=== PATIENT | female | born 1955 | race Caucasian/White ===

== ENCOUNTER → 2017-12-03 10:17 | Outpatient (CLI) | payer OTHER, MEDICAID, SELFPAY ==
--- NOTE | 2017-12-03 10:19 | DI.US.S_ITS ---
PROCEDURE: US ABDOMEN COMPLETE INDICATIONS: RUQ pain TECHNIQUE: Real-time scanning was performed of the abdominal and retroperitoneal organs, with image documentation. COMPARISON: None. FINDINGS: Liver: Liver is normal in size and homogeneous in echotexture. Gallbladder: The gallbladder is normal Biliary ducts: Intrahepatic bile ducts are non-dilated. Extrahepatic bile duct caliber measures 6.0 mm. Normal is 6-7 mm or less in diameter, or 10 mm or less post-cholecystectomy. Pancreas: Visualized portions of the pancreas are sonographically normal. Spleen: Spleen is normal in size and homogeneous in echotexture. Kidneys: Kidneys are normal in size and echotexture. Right kidney measures 11.6 cm long; left kidney measures 11.5 cm long. No hydronephrosis or nephrolithiasis. No solid masses. Aorta: Visualized aorta is normal in caliber at less than 3 cm. Iliacs: Proximal common iliac arteries are normal in caliber at less than 2.5 cm. IVC: Intrahepatic inferior vena cava is patent. Miscellaneous: No free abdominal fluid. IMPRESSION: Normal examination, source of current pain is not identified. Dictated by: Blas Perez M.D. on 12/03/2017 at 11:06 Approved by: Blas Perez M.D. on 12/03/2017 at 11:15
[2017-12-03 11:38] LABS: Add Manual Diff / Slide Review NO; Basophils Percent Auto 0.3 % (0-2); Eosinophils Percent Auto 1.4 % (2-4); Hematocrit 42.1 % (36-46); Hemoglobin 14.2 g/dL (12.0-16.0); Lymphocytes Percent Auto 37.4 % (25-40); Mean Corpuscular HGB Conc 33.8 % (30-36); Mean Corpuscular Hemoglobin 30.5 PG (26-34); Mean Corpuscular Volume 90.3 fL (80-100); Neutrophils Absolute Auto 3700 /uL (3000-5900); Neutrophils Percent Auto 54.9 % (50-75); Platelet Count 255 X10^3/uL (150-400); Red Blood Cell Count 4.66 X10^6/uL (4.0-5.2); Red Cell Distribution Width 13.1 % (11.6-14.8); White Blood Cell Count 6.7 X10^3/uL (4.5-11.0)
[2017-12-03 12:41] LABS: Alanine Aminotransferase 34 IU/L (9-52); Albumin 4.4 g/dL (3.5-5.0); Albumin Globulin Ratio 1.6 (1.0-2.8); Alkaline Phosphatase 51 U/L (38-126); Amylase 88 U/L (30-110); Aspartate Aminotransferase 25 IU/L (14-36); BUN Creatinine Ratio 22.9 (6-22); Blood Urea Nitrogen 16 mg/dL (7-17); Calcium 9.6 mg/dL (8.4-10.2); Carbon Dioxide 30 mmol/L (22-32); Chloride 105 mmol/L (98-107); Estimated Glomerular Filt Rate > 60.0 mL/min (>60); Globulin 2.7 g/dL (1.7-4.1); Glucose 100 mg/dL (80-110); HEMOLYSIS < 15 (0-50); Lipase 139 U/L (23-300); Potassium 4.1 mmol/L (3.4-5.1); Sodium 144 mmol/L (137-145); Total Protein 7.1 g/dL (6.3-8.2)
[2017-12-03 13:13] LABS: Thyroid Stimulating Hormone 1.31 uIU/mL (0.47-4.68)
== END ==
PROVIDERS: PCP Family Medicine; Visit Provider Internal Medicine
DX: R10.11 Right upper quadrant pain (principal); R63.5 Abnormal weight gain
CPT/HCPCS: 36415; 76700; 80053; 82150; 83690; 84443; 85025

== ENCOUNTER → 2017-12-29 15:05 | Outpatient (CLI) | payer OTHER, MEDICAID, SELFPAY ==
[2017-12-31 14:41] LABS: Fecal Immunochemical Test DETECTED
== END ==
PROVIDERS: PCP Internal Medicine; Visit Provider Internal Medicine
DX: Z12.11 Encounter for screening for malignant neoplasm of colon (principal)
CPT/HCPCS: 82274

== ENCOUNTER 2018-08-21 14:30 | Outpatient (RCR) | payer OTHER, MEDICAID, SELFPAY ==
--- NOTE | 2018-06-29 16:00 | PT.OIE ---
Current Diagnoses Strain of muscle, fascia and tendon of abdomen, initial encounter (06/29/18) Past Medical History (Last Updated 03/02/18 @ 10:53 by Celeste Walker MD) Hyperlipidemia (Chronic) GERD (gastroesophageal reflux disease) (Chronic) Tobacco abuse (Chronic 03/27/11) Hypertension (Chronic) Provider Visit Care Team Role Provider Type Celeste Walker MD Attending Provider Physician Primary Care Provider Specialty: [facility] Practice Address: [address] [place] [address], [employer] Email: [email or web address] Physical Therapy Initial Evaluation PT-OP-A Visit Information Start: 06/16/18 07:37 Freq: Status: Active Protocol: Document 06/29/18 13:45 AMB (Rec: 06/30/18 07:57 AMB [email or web address]) Out-Patient Physical Therapy Visit Information Visit Information Visit Type Treatment Note Visit Start Time 13:45 Visit Stop Time 14:30 Total Visit Minutes 45 Visit Number 1 PT-OP-B Current Condition Start: 06/16/18 07:37 Freq: Status: Active Protocol: Document 06/29/18 13:45 AMB (Rec: 06/30/18 07:57 AMB [email or web address]) Current Condition History of Current Condition Onset Date September 2017 Current Complaints upper abdominal pain History of Current Condition Pt noted increased abdominal pain insidious onset, comes and goes, cramping in nature just below sternum. Was previously more intense and more frequent, but is less frequent now, pt not sure if it is getting better or if she is just learning how to avoid it. Lifting her grandchildren can trigger it, twisting on the couch can trigger it, but not always. Notes nausea associated with double knee to chest with head lift in yoga. Denies pain with cough, sneeze, deep inhale. Denies radiation of pain. 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 Personal Factors Other Personal Factors That May Effect Current smoker Therapy/Recovery PT-OP-C Subjective Start: 06/16/18 07:37 Freq: Status: Active Protocol: Document 06/29/18 13:45 AMB (Rec: 06/30/18 07:57 AMB [email or web address]) OP-PT Pain Assessment Location Upper Abdomen Pain Location Details Below sternum Intensity 2 Scale Used Numeric (1 - 10) PT-OP-F Manual Assessment Start: 06/16/18 07:37 Freq: Status: Active Protocol: Document 06/29/18 13:45 AMB (Rec: 06/30/18 08:16 AMB [email or web address]) Manual Assessments Soft Tissue Assessment Soft Tissue Mobility Assessment No obvious diastasis, but this is more difficult to palpate due to body habitus. Pain with palpation at abdomen just distal to xiphoid process, no pain throughout lower abdomen with palpation. Joint Mobility Assessment Joint Mobility Assessment No pain with palpation at sternum or ribs PT-OP-J Posture/Palpation/Skin Start: 06/16/18 07:37 Freq: Status: Active Protocol: Document 06/29/18 13:45 AMB (Rec: 06/30/18 08:16 AMB [email or web address]) Posture Evaluation Comments Posture Comments Slight lumbar lordosis with standing, pt tends to hold her weight in her abdomen. PT-OP-K Range of Motion Start: 06/16/18 07:37 Freq: Status: Active Protocol: Document 06/30/18 08:00 AMB (Rec: 06/30/18 08:16 AMB [email or web address]) Lumbar Spine Range of Motion Lumbar Spine Active Percentage Testing Position Standing Flexion 75 Extension 50 Rotation Left 75 Rotation Right 75 Lateral Flexion Left 75 Lateral Flexion Right 75 ROM Limitations Soft Tissue Tightness PT-OP-M Strength Start: 06/16/18 07:37 Freq: Status: Active Protocol: Document 06/29/18 13:45 AMB (Rec: 06/30/18 08:16 AMB [email or web address]) Trunk Strength Trunk Manual Muscle Testing Testing Position Supine Core Stabilization Lifting head from supine position illicits pt's pain. Poor upper and lower trunk stabilization in hooklying PT-OP-Q Treatments Start: 06/16/18 07:37 Freq: Status: Active Protocol: Document 06/29/18 13:45 AMB (Rec: 06/30/18 08:16 AMB [email or web address]) Therapeutic Exercises Supine Exercises 1 Supine Exercise Name pelvic tilt Reps/Minutes 10 Comments with TrA stab and breathing Other Exercises 1 Other Exercise Name thread the needle Comments quadruped PT-OP-T Assessment and Plan Start: 06/16/18 07:37 Freq: Status: Active Protocol: Document 06/29/18 13:45 AMB (Rec: 06/30/18 08:52 AMB [email or web address]) Physical Therapy Assessment Rehab Potential Rehabilitation Potential Good Evaluation Complexity Number of Personal Factors/Comorbidities 1-2 Number of Body Systems Impaired 4 or More Clinical Presentation at Evaluation Evolving Impairments Impairments Functional Activities Pain Posture Soft Tissue Mobility Strength Goals Two Impairment Core stability Short Term Goal (STG) The patient will be independent with a core stabilization program. STG Duration 4 weeks Usp Goal (LTG) The patient will be able to lift her head from a supine position without abdominal pain. LTG Duration 8 weeks One Impairment Lifting Short Term Goal (STG) The patient will lift 10 pounds with good body mechanics without pain. STG Duration 4 weeks Outboard Motor Tester Goal (LTG) The patient will report she can lift her gradchildren without pain. LTG Duration 8 weeks Assessment Summary Assessment The patient attends physical therapy with superior abdominal pain that appears musculoskeletal in nature due to it increasing with lifting and the upper abdominal stabilization required to lift her head in supine. She will benefit from physical therapy to stabilize her muscles so that she can return to lifting and moving without upper abdominal pain. Her previous medical tests and the non- radiating nature of the pain also substantiate an orthopedic source of her pain. Physical Therapy Plan Frequency and Duration Frequency of Treatment 1x/Week Duration of Treatment 8 weeks Plan of Care Start Date 06/29/18 Plan of Care End Date 08/24/18 Therapeutic Interventions Therapeutic Interventions Home Exercise Program Manual Therapy Neuromuscular Re-education Self-Care/Home Management Taping Therapeutic Activities Therapeutic Exercises Modalities Cold Pack/Ice Massage Electric Stimulation Hot Packs Ultrasound Next Visit Focus/Plan Next Note Type Treatment Note Next Visit Plan Progress core stabilization and body mechanics without flaring pain.
--- NOTE | 2018-06-29 16:01 | PT.OPPOC ---
Current Diagnoses Strain of muscle, fascia and tendon of abdomen, initial encounter (06/29/18) Provider Visit Care Team Role Provider Type Celeste Walker MD Attending Provider Physician Primary Care Provider Specialty: Family Practice Address: [address] [place] [address], [facility] Email: [email or web address] Plan Of Care PT-OP-T Assessment and Plan Start: 06/16/18 07:37 Freq: Status: Active Protocol: Document 06/29/18 13:45 AMB (Rec: 06/30/18 08:52 AMB [email or web address]) Physical Therapy Assessment Rehab Potential Rehabilitation Potential Good Evaluation Complexity Number of Personal Factors/Comorbidities 1-2 Number of Body Systems Impaired 4 or More Clinical Presentation at Evaluation Evolving Impairments Impairments Functional Activities Pain Posture Soft Tissue Mobility Strength Goals Two Impairment Core stability Short Term Goal (STG) The patient will be independent with a core stabilization program. STG Duration 4 weeks Group Home Goal (LTG) The patient will be able to lift her head from a supine position without abdominal pain. LTG Duration 8 weeks One Impairment Lifting Short Term Goal (STG) The patient will lift 10 pounds with good body mechanics without pain. STG Duration 4 weeks Group Home Goal (LTG) The patient will report she can lift her gradchildren without pain. LTG Duration 8 weeks Assessment Summary Assessment The patient attends physical therapy with superior abdominal pain that appears musculoskeletal in nature due to it increasing with lifting and the upper abdominal stabilization required to lift her head in supine. She will benefit from physical therapy to stabilize her muscles so that she can return to lifting and moving without upper abdominal pain. Her previous medical tests and the non- radiating nature of the pain also substantiate an orthopedic source of her pain. Physical Therapy Plan Frequency and Duration Frequency of Treatment 1x/Week Duration of Treatment 8 weeks Plan of Care Start Date 06/29/18 Plan of Care End Date 08/24/18 Therapeutic Interventions Therapeutic Interventions Home Exercise Program Manual Therapy Neuromuscular Re-education Self-Care/Home Management Taping Therapeutic Activities Therapeutic Exercises Modalities Cold Pack/Ice Massage Electric Stimulation Hot Packs Ultrasound Next Visit Focus/Plan Next Note Type Treatment Note Next Visit Plan Progress core stabilization and body mechanics without flaring pain. Plan of Care Dates Plan of Care Start Date 06/29/18 Plan of Care End Date 08/24/18 Please Sign and Return: I have reviewed this Plan of Care and certify that the skilled therapy services above are required to meet the patient?s needs. Physician Signature Date Printed Name and Credentials Clinical Instructor Signature Printed Name and Credentials
--- NOTE | 2018-07-31 15:54 | PT.OTN ---
Current Diagnoses Strain of muscle, fascia and tendon of abdomen, initial encounter (07/31/18) Physical Therapy Treatment Note PT-OP-A Visit Information Start: 06/16/18 07:37 Freq: Status: Active Protocol: Document 07/31/18 14:30 AMB (Rec: 07/31/18 15:50 AMB [email or web address]) Out-Patient Physical Therapy Visit Information Visit Information Visit Type Treatment Note Visit Start Time 13:45 Visit Stop Time 14:30 Total Visit Minutes 45 Visit Number 2 PT-OP-B Current Condition Start: 06/16/18 07:37 Freq: Status: Active Protocol: Document 06/29/18 13:45 AMB (Rec: 06/30/18 07:57 AMB [email or web address]) Current Condition History of Current Condition Onset Date September 2017 Current Complaints upper abdominal pain History of Current Condition Pt noted increased abdominal pain insidious onset, comes and goes, cramping in nature just below sternum. Was previously more intense and more frequent, but is less frequent now, pt not sure if it is getting better or if she is just learning how to avoid it. Lifting her grandchildren can trigger it, twisting on the couch can trigger it, but not always. Notes nausea associated with double knee to chest with head lift in yoga. Denies pain with cough, sneeze, deep inhale. Denies radiation of pain. 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 She felt thread the needle increased lateral lateral trunk pain. She has been lifting her 20# grandbaby more and that has been painful, but she has been able to modify her lifting to decrease her pain. PT-OP-F Manual Assessment Start: 06/16/18 07:37 Freq: Status: Active Protocol: Document 06/29/18 13:45 AMB (Rec: 06/30/18 08:16 AMB [email or web address]) Manual Assessments Soft Tissue Assessment Soft Tissue Mobility Assessment No obvious diastasis, but this is more difficult to palpate due to body habitus. Pain with palpation at abdomen just distal to xiphoid process, no pain throughout lower abdomen with palpation. Joint Mobility Assessment Joint Mobility Assessment No pain with palpation at sternum or ribs PT-OP-J Posture/Palpation/Skin Start: 06/16/18 07:37 Freq: Status: Active Protocol: Document 06/29/18 13:45 AMB (Rec: 06/30/18 08:16 AMB [email or web address]) Posture Evaluation Comments Posture Comments Slight lumbar lordosis with standing, pt tends to hold her weight in her abdomen. PT-OP-K Range of Motion Start: 06/16/18 07:37 Freq: Status: Active Protocol: Document 06/30/18 08:00 AMB (Rec: 06/30/18 08:16 AMB [email or web address]) Lumbar Spine Range of Motion Lumbar Spine Active Percentage Testing Position Standing Flexion 75 Extension 50 Rotation Left 75 Rotation Right 75 Lateral Flexion Left 75 Lateral Flexion Right 75 ROM Limitations Soft Tissue Tightness PT-OP-M Strength Start: 06/16/18 07:37 Freq: Status: Active Protocol: Document 06/29/18 13:45 AMB (Rec: 06/30/18 08:16 AMB [email or web address]) Trunk Strength Trunk Manual Muscle Testing Testing Position Supine Core Stabilization Lifting head from supine position illicits pt's pain. Poor upper and lower trunk stabilization in hooklying PT-OP-Q Treatments Start: 06/16/18 07:37 Freq: Status: Active Protocol: Document 07/31/18 14:30 AMB (Rec: 07/31/18 15:50 AMB [email or web address]) Therapeutic Exercises Supine Exercises 4 Supine Exercise Name heel slide Reps/Minutes 10 3 Supine Exercise Name supine march Reps/Minutes 2x5 2 Supine Exercise Name bridge Reps/Minutes 10 1 Supine Exercise Name pelvic tilt Reps/Minutes 10 Comments with TrA stab and breathing Other Exercises 2 Other Exercise Name bird dog Reps/Minutes 10 Manual Therapy Treatment Taping 1 Body Location I strip at superior abs Type of Tape Kinesio Tape PT-OP-T Assessment and Plan Start: 06/16/18 07:37 Freq: Status: Active Protocol: Document 07/31/18 14:30 AMB (Rec: 07/31/18 15:50 AMB [email or web address]) Physical Therapy Assessment Assessment Summary Assessment Short session due to ferry schedule, pt able to tolerate quadruped and bridging well, supine july started to increase sx so kept # of reps low. Physical Therapy Plan Next Visit Focus/Plan Next Note Type Treatment Note Next Visit Plan Progress core stabilization and body mechanics without flaring pain.
--- NOTE | 2018-08-21 15:30 | PT.OTN ---
Current Diagnoses Strain of muscle, fascia and tendon of abdomen, initial encounter (08/21/18) Physical Therapy Treatment Note PT-OP-A Visit Information Start: 06/16/18 07:37 Freq: Status: Active Protocol: Document 08/21/18 14:30 AMB (Rec: 08/21/18 15:29 AMB [email or web address]) Out-Patient Physical Therapy Visit Information Visit Information Visit Type Treatment Note Visit Start Time 14:30 Visit Stop Time 15:05 Total Visit Minutes 35 Visit Number 3 PT-OP-B Current Condition Start: 06/16/18 07:37 Freq: Status: Active Protocol: Document 06/29/18 13:45 AMB (Rec: 06/30/18 07:57 AMB [email or web address]) Current Condition History of Current Condition Onset Date September 2017 Current Complaints upper abdominal pain History of Current Condition Pt noted increased abdominal pain insidious onset, comes and goes, cramping in nature just below sternum. Was previously more intense and more frequent, but is less frequent now, pt not sure if it is getting better or if she is just learning how to avoid it. Lifting her grandchildren can trigger it, twisting on the couch can trigger it, but not always. Notes nausea associated with double knee to chest with head lift in yoga. Denies pain with cough, sneeze, deep inhale. Denies radiation of pain. 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 She has not done her exercises this week due to that increase in pain. She is hoping to have more appointments after her colonoscopy next week. PT-OP-F Manual Assessment Start: 06/16/18 07:37 Freq: Status: Active Protocol: Document 06/29/18 13:45 AMB (Rec: 06/30/18 08:16 AMB [email or web address]) Manual Assessments Soft Tissue Assessment Soft Tissue Mobility Assessment No obvious diastasis, but this is more difficult to palpate due to body habitus. Pain with palpation at abdomen just distal to xiphoid process, no pain throughout lower abdomen with palpation. Joint Mobility Assessment Joint Mobility Assessment No pain with palpation at sternum or ribs PT-OP-J Posture/Palpation/Skin Start: 06/16/18 07:37 Freq: Status: Active Protocol: Document 06/29/18 13:45 AMB (Rec: 06/30/18 08:16 AMB [email or web address]) Posture Evaluation Comments Posture Comments Slight lumbar lordosis with standing, pt tends to hold her weight in her abdomen. PT-OP-K Range of Motion Start: 06/16/18 07:37 Freq: Status: Active Protocol: Document 06/30/18 08:00 AMB (Rec: 06/30/18 08:16 AMB [email or web address]) Lumbar Spine Range of Motion Lumbar Spine Active Percentage Testing Position Standing Flexion 75 Extension 50 Rotation Left 75 Rotation Right 75 Lateral Flexion Left 75 Lateral Flexion Right 75 ROM Limitations Soft Tissue Tightness PT-OP-M Strength Start: 06/16/18 07:37 Freq: Status: Active Protocol: Document 06/29/18 13:45 AMB (Rec: 06/30/18 08:16 AMB [email or web address]) Trunk Strength Trunk Manual Muscle Testing Testing Position Supine Core Stabilization Lifting head from supine position illicits pt's pain. Poor upper and lower trunk stabilization in hooklying PT-OP-Q Treatments Start: 06/16/18 07:37 Freq: Status: Active Protocol: Document 08/21/18 14:30 AMB (Rec: 08/21/18 15:29 AMB [email or web address]) Gym Equipment Therapeutic Ball 1 Exercise Details 65cm Body Position seated Comments march, hamstring stretch, alteranting LE/UE flexion,TKE Therapeutic Exercises Supine Exercises 3 Supine Exercise Name supine march Reps/Minutes 2x5 1 Supine Exercise Name pelvic tilt Reps/Minutes 10 Comments with TrA stab and breathing Manual Therapy Treatment Taping 1 Body Location I strip at superior abs Type of Tape Kinesio Tape Comments then 4 Is, in X position to support linea alba PT-OP-T Assessment and Plan Start: 06/16/18 07:37 Freq: Status: Active Protocol: Document 08/21/18 14:30 AMB (Rec: 08/21/18 15:29 AMB [email or web address]) Physical Therapy Assessment Goals Two Impairment Core stability Short Term Goal (STG) The patient will be independent with a core stabilization program. 4/5 not met STG Duration 4 weeks Digital Account Director Goal (LTG) The patient will be able to lift her head from a supine position without abdominal pain. 4/5: Not met LTG Duration 8 weeks One Impairment Lifting Short Term Goal (STG) The patient will lift 10 pounds with good body mechanics without pain. 4/5 not met STG Duration 4 weeks Digital Account Director Goal (LTG) The patient will report she can lift her gradchildren without pain. 4/5 not met LTG Duration 8 weeks Assessment Summary Assessment Reassurred patient that symptoms seem muskuloskeletal in nature due to positional changes (lifting, twisting, raising neck when in supine) increasing symptoms. Pt needs to be more consistent with her exercises to see if core stabilization will have a positive impact. She does state that posture does make a difference in her pain. Due to her schedule she has only been seen three times, so to give a good try with PT, we will need to see her more. Physical Therapy Plan Frequency and Duration Frequency of Treatment 1x/Week Duration of Treatment 8 weeks Plan of Care Start Date 08/21/18 Plan of Care End Date 10/16/18 Therapeutic Interventions Therapeutic Interventions Home Exercise Program Manual Therapy Neuromuscular Re-education Self-Care/Home Management Taping Therapeutic Activities Therapeutic Exercises Modalities Cold Pack/Ice Massage Electric Stimulation Hot Packs Ultrasound Next Visit Focus/Plan Next Note Type Treatment Note Next Visit Plan Progress core stabilization and body mechanics without flaring pain.
--- NOTE | 2018-08-21 15:31 | PT.OPPOC ---
Current Diagnoses Strain of muscle, fascia and tendon of abdomen, initial encounter (08/21/18) Provider Visit Care Team Role Provider Type Celeste Walker MD Attending Provider Physician Primary Care Provider Specialty: Family Practice Address: [address] [place] [address], [facility] Email: [email or web address] Plan Of Care PT-OP-T Assessment and Plan Start: 06/16/18 07:37 Freq: Status: Active Protocol: Document 08/21/18 14:30 AMB (Rec: 08/21/18 15:29 AMB [email or web address]) Physical Therapy Assessment Goals Two Impairment Core stability Short Term Goal (STG) The patient will be independent with a core stabilization program. 4/5 not met STG Duration 4 weeks Document Review Attorney Goal (LTG) The patient will be able to lift her head from a supine position without abdominal pain. 4/5: Not met LTG Duration 8 weeks One Impairment Lifting Short Term Goal (STG) The patient will lift 10 pounds with good body mechanics without pain. 4/5 not met STG Duration 4 weeks Document Review Attorney Goal (LTG) The patient will report she can lift her gradchildren without pain. 4/5 not met LTG Duration 8 weeks Assessment Summary Assessment Reassurred patient that symptoms seem muskuloskeletal in nature due to positional changes (lifting, twisting, raising neck when in supine) increasing symptoms. Pt needs to be more consistent with her exercises to see if core stabilization will have a positive impact. She does state that posture does make a difference in her pain. Due to her schedule she has only been seen three times, so to give a good try with PT, we will need to see her more. Physical Therapy Plan Frequency and Duration Frequency of Treatment 1x/Week Duration of Treatment 8 weeks Plan of Care Start Date 08/21/18 Plan of Care End Date 10/16/18 Therapeutic Interventions Therapeutic Interventions Home Exercise Program Manual Therapy Neuromuscular Re-education Self-Care/Home Management Taping Therapeutic Activities Therapeutic Exercises Modalities Cold Pack/Ice Massage Electric Stimulation Hot Packs Ultrasound Next Visit Focus/Plan Next Note Type Treatment Note Next Visit Plan Progress core stabilization and body mechanics without flaring pain. Plan of Care Dates Plan of Care Start Date 08/21/18 Plan of Care End Date 10/16/18 Please Sign and Return: I have reviewed this Plan of Care and certify that the skilled therapy services above are required to meet the patient?s needs. Physician Signature Date Printed Name and Credentials Clinical Instructor Signature Printed Name and Credentials
--- NOTE | 2018-12-11 09:49 | PT.OPDS ---
Current Diagnoses Strain of muscle, fascia and tendon of abdomen, initial encounter (08/21/18) Provider Visit Care Team Role Provider Type Celeste Walker MD Attending Provider Physician Primary Care Provider Specialty: Family Practice Address: [address] [place] [address], [facility] Email: [email or web address] Visit Number Visit Number 3 Discharge Summary PT-OP-B Current Condition Start: 06/16/18 07:37 Freq: Status: Active Protocol: Document 06/29/18 13:45 AMB (Rec: 06/30/18 07:57 AMB [email or web address]) Current Condition History of Current Condition Onset Date September 2017 Current Complaints upper abdominal pain History of Current Condition Pt noted increased abdominal pain insidious onset, comes and goes, cramping in nature just below sternum. Was previously more intense and more frequent, but is less frequent now, pt not sure if it is getting better or if she is just learning how to avoid it. Lifting her grandchildren can trigger it, twisting on the couch can trigger it, but not always. Notes nausea associated with double knee to chest with head lift in yoga. Denies pain with cough, sneeze, deep inhale. Denies radiation of pain. 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 She has not done her exercises this week due to that increase in pain. She is hoping to have more appointments after her colonoscopy next week. PT-OP-F Manual Assessment Start: 06/16/18 07:37 Freq: Status: Active Protocol: Document 06/29/18 13:45 AMB (Rec: 06/30/18 08:16 AMB [email or web address]) Manual Assessments Soft Tissue Assessment Soft Tissue Mobility Assessment No obvious diastasis, but this is more difficult to palpate due to body habitus. Pain with palpation at abdomen just distal to xiphoid process, no pain throughout lower abdomen with palpation. Joint Mobility Assessment Joint Mobility Assessment No pain with palpation at sternum or ribs PT-OP-J Posture/Palpation/Skin Start: 06/16/18 07:37 Freq: Status: Active Protocol: Document 06/29/18 13:45 AMB (Rec: 06/30/18 08:16 AMB [email or web address]) Posture Evaluation Comments Posture Comments Slight lumbar lordosis with standing, pt tends to hold her weight in her abdomen. PT-OP-K Range of Motion Start: 06/16/18 07:37 Freq: Status: Active Protocol: Document 06/30/18 08:00 AMB (Rec: 06/30/18 08:16 AMB [email or web address]) Lumbar Spine Range of Motion Lumbar Spine Active Percentage Testing Position Standing Flexion 75 Extension 50 Rotation Left 75 Rotation Right 75 Lateral Flexion Left 75 Lateral Flexion Right 75 ROM Limitations Soft Tissue Tightness PT-OP-M Strength Start: 06/16/18 07:37 Freq: Status: Active Protocol: Document 06/29/18 13:45 AMB (Rec: 06/30/18 08:16 AMB [email or web address]) Trunk Strength Trunk Manual Muscle Testing Testing Position Supine Core Stabilization Lifting head from supine position illicits pt's pain. Poor upper and lower trunk stabilization in hooklying PT-OP-T Assessment and Plan Start: 06/16/18 07:37 Freq: Status: Active Protocol: Document 12/11/18 09:45 AMB (Rec: 12/11/18 09:49 AMB [email or web address]) Physical Therapy Assessment Assessment Summary Assessment Jimena called about a month after her last visit stating that her symptoms seemed better with the taping and exercises, but that she wanted to schedule one more appointment, she has not done so, so she is therefore discharged because she has not been seen in almost 4 months. She did, per her report seem to have improving symptoms. Physical Therapy Plan Discharge Physical Therapy Discharge Reasons No Longer Attending PT
== END 2018-12-11 13:42 | disposition home or self-care (01) ==
LOC: PHYS 14:30
PROVIDERS: PCP Family Medicine; Visit Provider Family Medicine
DX: S39.011A Strain of muscle, fascia and tendon of abdomen, initial encounter (principal)
CPT/HCPCS: 97110; 97140; 97162

== ENCOUNTER → 2019-10-12 14:35 | Outpatient (CLI) | payer OTHER, MEDICAID, SELFPAY | PROVIDERS: PCP Family Medicine; Referring Provider Family Medicine; Visit Provider Family Medicine | DX: S21.201A Unspecified open wound of right back wall of thorax without penetration into thoracic cavity, initial encounter (principal); L08.9 Local infection of the skin and subcutaneous tissue, unspecified | CPT/HCPCS: 11042; 87070; 87077; 87147; 87186; 87205; 99203; 99213 ==

== ENCOUNTER → 2019-10-19 10:56 | Outpatient (CLI) | payer OTHER, MEDICAID, SELFPAY | PROVIDERS: PCP Family Medicine; Referring Provider Family Medicine; Visit Provider Family Medicine | DX: S21.201A Unspecified open wound of right back wall of thorax without penetration into thoracic cavity, initial encounter (principal); L08.9 Local infection of the skin and subcutaneous tissue, unspecified; B95.61 Methicillin susceptible Staphylococcus aureus infection as the cause of diseases classified elsewhere | CPT/HCPCS: 11042; 99214 ==

== ENCOUNTER → 2019-10-26 09:31 | Outpatient (CLI) | payer OTHER, MEDICAID, SELFPAY | PROVIDERS: PCP Family Medicine; Referring Provider Family Medicine; Visit Provider Family Medicine | DX: S21.201A Unspecified open wound of right back wall of thorax without penetration into thoracic cavity, initial encounter (principal); L08.9 Local infection of the skin and subcutaneous tissue, unspecified; B95.61 Methicillin susceptible Staphylococcus aureus infection as the cause of diseases classified elsewhere | CPT/HCPCS: 11042 ==

== ENCOUNTER → 2019-11-02 10:22 | Outpatient (CLI) | payer OTHER, MEDICAID, SELFPAY | PROVIDERS: PCP Family Medicine; Referring Provider Family Medicine; Visit Provider Family Medicine | DX: S31.000D Unspecified open wound of lower back and pelvis without penetration into retroperitoneum, subsequent encounter (principal); Z48.00 Encounter for change or removal of nonsurgical wound dressing | CPT/HCPCS: 99212 ==

== ENCOUNTER → 2019-11-18 09:57 | Outpatient (CLI) | payer OTHER, MEDICAID, SELFPAY ==
[2019-11-18 11:31] LABS: Creatinine Urine Random 125.1 mg/dL
[2019-11-18 11:33] LABS: Add Manual Diff / Slide Review NO; Basophils Absolute Auto 0 /uL (0-100); Basophils Percent Auto 0.5 % (0-2); Eosinophils Absolute Auto 100 /uL (0-450); Eosinophils Percent Auto 1.5 % (2-4); Hematocrit 42.8 % (36-46); Hemoglobin 14.6 g/dL (12.0-16.0); Lymphocytes Absolute Auto 2700 /uL (1100-4500); Lymphocytes Percent Auto 35.1 % (25-40); Mean Corpuscular HGB Conc 34.2 % (30-36); Mean Corpuscular Volume 90.5 fL (80-100); Monocytes Absolute Auto 400 /uL (0-900); Monocytes Percent Auto 5.1 % (3-14); Neutrophils Absolute Auto 4400 /uL (1500-7000); Neutrophils Percent Auto 57.8 % (50-75); Platelet Count 282 X10^3/uL (150-400); Red Blood Cell Count 4.73 X10^6/uL (4.0-5.2); Red Cell Distribution Width 13.2 % (11.6-14.8); White Blood Cell Count 7.6 X10^3/uL (4.5-11.0)
[2019-11-18 11:37] LABS: Hemoglobin A1C% w Est Avg Glu 6.2 % (4.0-6.0); Microalbumi Creatinin Ratio Ur 59.9 ug/mg CR (<30); Microalbumin Urine Random 7.5 mg/dL (0-1.6)
[2019-11-18 11:43] LABS: Alanine Aminotransferase 23 IU/L (<35); Albumin 4.6 g/dL (3.5-5.0); Albumin Globulin Ratio 1.8 (1.0-2.8); Alkaline Phosphatase 60 U/L (38-126); Aspartate Aminotransferase 26 IU/L (14-36); BUN Creatinine Ratio 24.6 (6-22); Bilirubin Total 1.1 mg/dL (0.2-1.3); Blood Urea Nitrogen 16 mg/dL (7-17); Carbon Dioxide 27 mmol/L (22-32); Chloride 105 mmol/L (98-107); Cholesterol 172 mg/dL (140-199); Estimated Glomerular Filt Rate > 60.0 mL/min (>60); Globulin 2.5 g/dL (1.7-4.1); Glucose 115 mg/dL (80-110); HDL Cholesterol 52 mg/dL (40-60); HEMOLYSIS < 15 (0-50); LDL Cholesterol Calculated 92 mg/dL (<100); Potassium 4.3 mmol/L (3.4-5.1); Sodium 139 mmol/L (137-145); Total Protein 7.1 g/dL (6.3-8.2); Triglycerides 142 mg/dL (35-150)
[2019-11-18 12:14] LABS: Thyroid Stimulating Hormone 1.26 uIU/mL (0.47-4.68)
== END ==
PROVIDERS: PCP Family Medicine; Referring Provider Family Medicine; Visit Provider Family Medicine
DX: E78.5 Hyperlipidemia, unspecified (principal); I10 Essential (primary) hypertension; R63.5 Abnormal weight gain; R73.9 Hyperglycemia, unspecified
CPT/HCPCS: 36415; 80053; 80061; 82043; 82570; 83036; 84443; 85025

== ENCOUNTER → 2020-08-17 10:29 | Outpatient (CLI) | payer OTHER, MEDICAID, SELFPAY ==
[2020-08-17] MEDS: COVID-19 VACC #1, MRNA(MOD) 100 MCG/0.5 ML VIAL IM (10:40)
== END ==
PROVIDERS: PCP Family Medicine; Visit Provider Internal Medicine
DX: Z23 Encounter for immunization (principal)
CPT/HCPCS: 0011A; 91301

== ENCOUNTER → 2020-09-14 10:29 | Outpatient (CLI) | payer OTHER, MEDICAID, SELFPAY ==
[2020-09-14] MEDS: COVID-19 VACC #2, MRNA(MOD) 100 MCG/0.5 ML VIAL IM (10:36)
== END ==
PROVIDERS: PCP Family Medicine; Visit Provider Internal Medicine
DX: Z23 Encounter for immunization (principal)
CPT/HCPCS: 0012A; 91301

== ENCOUNTER → 2021-01-11 10:04 | Outpatient (CLI) | payer OTHER, MEDICAID, SELFPAY ==
[2021-01-11 10:42] LABS: Hemoglobin A1C% w Est Avg Glu 5.8 % (4.0-6.0)
[2021-01-11 10:46] LABS: Creatinine Urine Random 143.8 mg/dL
[2021-01-11 10:51] LABS: Microalbumi Creatinin Ratio Ur 32.6 ug/mg CR (<30); Microalbumin Urine Random 4.7 mg/dL (0-1.6)
[2021-01-11 11:31] LABS: Alanine Aminotransferase 27 IU/L (<35); Albumin 4.5 g/dL (3.5-5.0); Albumin Globulin Ratio 1.7 (1.0-2.8); Alkaline Phosphatase 58 U/L (38-126); Aspartate Aminotransferase 28 IU/L (14-36); BUN Creatinine Ratio 29.2 (6-22); Bilirubin Total 1.2 mg/dL (0.2-1.3); Blood Urea Nitrogen 21 mg/dL (7-17); Calcium 10.1 mg/dL (8.4-10.2); Carbon Dioxide 29 mmol/L (22-32); Chloride 104 mmol/L (98-107); Cholesterol 209 mg/dL (140-199); Estimated Glomerular Filt Rate > 60.0 mL/min (>60); Globulin 2.7 g/dL (1.7-4.1); Glucose 107 mg/dL (80-110); HDL Cholesterol 63 mg/dL (40-60); HEMOLYSIS < 15 (0-50); LDL Cholesterol Calculated 124 mg/dL (<100); Potassium 4.8 mmol/L (3.4-5.1); Sodium 139 mmol/L (137-145); Total Protein 7.2 g/dL (6.3-8.2); Triglycerides 110 mg/dL (35-150)
== END ==
PROVIDERS: PCP Family Medicine; Referring Provider Family Medicine; Visit Provider Family Medicine
DX: I10 Essential (primary) hypertension (principal); R73.03 Prediabetes
CPT/HCPCS: 36415; 80053; 80061; 82043; 82570; 83036

== ENCOUNTER → 2021-06-01 10:01 | Outpatient (CLI) | payer OTHER, MEDICAID, SELFPAY ==
[2021-06-01 10:54] LABS: COVID19 -Nasal RAPID Negative (Negative)
== END ==
PROVIDERS: PCP Family Medicine; Visit Provider Nurse Practitioner Family
DX: Z20.822 Contact with and (suspected) exposure to COVID-19 (principal)
CPT/HCPCS: 87635

== ENCOUNTER → 2022-01-23 10:27 | Outpatient (CLI) | payer OTHER, MEDICAID, SELFPAY ==
[2022-01-23 11:22] LABS: Alanine Aminotransferase 26 IU/L (<35); Albumin 4.6 g/dL (3.5-5.0); Albumin Globulin Ratio 1.4 (1.0-2.8); Alkaline Phosphatase 56 U/L (38-126); Aspartate Aminotransferase 29 IU/L (14-36); BUN Creatinine Ratio 28.4 (6-22); Bilirubin Total 1.3 mg/dL (0.2-1.3); Blood Urea Nitrogen 21 mg/dL (7-17); Calcium 9.3 mg/dL (8.4-10.2); Carbon Dioxide 28 mmol/L (22-32); Chloride 105 mmol/L (98-107); Cholesterol 175 mg/dL (140-199); Estimated Glomerular Filt Rate > 60 mL/min (>60); Globulin 3.2 g/dL (1.7-4.1); Glucose 123 mg/dL (80-110); HDL Cholesterol 50 mg/dL (40-60); HEMOLYSIS 30 (0-50); LDL Cholesterol Calculated 105 mg/dL (<100); Potassium 4.3 mmol/L (3.4-5.1); Sodium 140 mmol/L (137-145); Total Protein 7.8 g/dL (6.3-8.2); Triglycerides 98 mg/dL (35-150)
--- NOTE | 2022-01-23 14:39 | DI.US.S_ITS ---
PROCEDURE: US EXTREMITY NONVASC LOWER RT INDICATIONS: RIGHT THIGH LUMP TECHNIQUE: Real-time scanning was performed of the right thigh , with image documentation. COMPARISON: None. FINDINGS: No sonographically detectable abnormality. IMPRESSION: Negative examination. MRI with and without intravenous contrast may be helpful for further assessment. Dictated by: Bora Schmitz M.D. on 01/23/2022 at 17:01 Approved by: Bora Schmitz M.D. on 01/23/2022 at 17:01
== END ==
PROVIDERS: PCP Family Medicine; Referring Provider Family Medicine; Visit Provider Family Medicine
DX: D17.23 Benign lipomatous neoplasm of skin and subcutaneous tissue of right leg (principal); E78.5 Hyperlipidemia, unspecified
CPT/HCPCS: 36415; 76882; 80053; 80061

== ENCOUNTER → 2022-07-25 12:26 | Outpatient (CLI) | payer OTHER, MEDICAID, SELFPAY | PROVIDERS: PCP Family Medicine; Visit Provider Registered Nurse | DX: R30.0 Dysuria (principal) | CPT/HCPCS: 81002; 87086 ==

== ENCOUNTER → 2023-01-28 10:32 | Outpatient (CLI) | payer OTHER, SELFPAY ==
[2023-01-28 12:52] LABS: Hemoglobin A1C% w Est Avg Glu 5.9 % (4.0-6.0)
[2023-01-28 13:12] LABS: Alanine Aminotransferase 33 IU/L (<35); Albumin 4.4 g/dL (3.5-5.0); Albumin Globulin Ratio 1.7 (1.0-2.8); Alkaline Phosphatase 55 U/L (38-126); Aspartate Aminotransferase 29 IU/L (14-36); Bilirubin Total 1.3 mg/dL (0.2-1.3); Blood Urea Nitrogen 18 mg/dL (7-17); Calcium 9.4 mg/dL (8.4-10.2); Carbon Dioxide 26 mmol/L (22-32); Chloride 105 mmol/L (98-107); Cholesterol 172 mg/dL (140-199); Estimated Glomerular Filt Rate > 60 mL/min (>60); Globulin 2.6 g/dL (1.7-4.1); Glucose 104 mg/dL (80-110); HDL Cholesterol 53 mg/dL (40-60); HEMOLYSIS < 15 (0-50); LDL Cholesterol Calculated 97 mg/dL (<100); Potassium 4.4 mmol/L (3.4-5.1); Sodium 139 mmol/L (137-145); Triglycerides 109 mg/dL (35-150)
[2023-01-28 15:02] LABS: Creatinine Urine Random 104.2 mg/dL
[2023-01-28 15:07] LABS: Microalbumi Creatinin Ratio Ur 153.5 ug/mg CR (<30)
== END ==
PROVIDERS: PCP Family Medicine; Referring Provider Family Medicine; Visit Provider Family Medicine
DX: R73.03 Prediabetes (principal); I10 Essential (primary) hypertension
CPT/HCPCS: 36415; 80053; 80061; 82043; 82570; 83036

== ENCOUNTER → 2023-02-13 11:11 | Outpatient (CLI) | payer OTHER, SELFPAY ==
--- NOTE | 2023-02-13 | DI.CT.S_ITS ---
PROCEDURE: CT LUNG LOW DOSE SCREENING INDICATIONS: TOBACCO ABUSE TECHNIQUE: Noncontrast 2.0-2.5 mm thick sections acquired from the pulmonary apices to the posterior costophrenic angles. 7 mm thick axial MIP, and 5 mm coronal and sagittal reformats were then acquired. A low radiation dose technique was utilized. COMPARISON: None. FINDINGS: Image quality: Diagnostic, given the low radiation dose technique. Lungs and pleura: There is a 6 mm pulmonary nodule within the right lower lobe (series 3/image 152). No other suspicious pulmonary nodules or acute airspace opacities. Mediastinum: Heart size is normal. No pericardial effusion. No mediastinal adenopathy by size criteria. Thoracic aorta and central pulmonary arteries are normal in size. Esophagus is normal in caliber. No hiatal hernia. Bones and chest wall: No suspicious bony lesions. There is diffuse anterior wedging and flowing syndesmophytes within the midportion of the thoracic spine. Severe reactive endplate changes are present at multiple levels. A chronic appearing compression deformity is present within the inferior T4 vertebral body. No axillary or supraclavicular adenopathy by size criteria. Thyroid gland is unremarkable. Abdomen: Visualized upper abdomen solid organs and bowel loops appear normal in the absence of contrast. IMPRESSION: 6 mm right lower lobe pulmonary nodule. LUNG-RADS 3; probably benign. [address] follow-up recommended. Dictated by: Yanira Coats M.D. on 02/13/2023 at 12:46 Approved by: Yanira Coats M.D. on 02/13/2023 at 12:55
== END ==
PROVIDERS: PCP Family Medicine; Referring Provider Family Medicine; Visit Provider Family Medicine
DX: Z12.2 Encounter for screening for malignant neoplasm of respiratory organs (principal); R91.1 Solitary pulmonary nodule; F17.211 Nicotine dependence, cigarettes, in remission
CPT/HCPCS: 71271

== ENCOUNTER → 2023-05-09 14:36 | Outpatient (CLI) | payer OTHER, SELFPAY | PROVIDERS: PCP Family Medicine; Visit Provider Nurse Practitioner Family | DX: R30.0 Dysuria (principal) | CPT/HCPCS: 87086 ==

== ENCOUNTER → 2023-08-31 13:49 | Outpatient (CLI) | payer OTHER, SELFPAY ==
--- NOTE | 2023-08-31 13:51 | DI.CT.S_ITS ---
PROCEDURE: CT CHEST WO CON INDICATIONS: following lung nodules TECHNIQUE: Noncontrast 5 mm thick sections acquired from the pulmonary apices to the posterior costophrenic angles. 1 mm lung window, 5 mm thick coronal and sagittal and 7 mm axial MIP reformats were then acquired. For radiation dose reduction, the following was used: automated exposure control, adjustment of mA and/or kV according to patient size. COMPARISON: [facility], CT, CT LUNG LOW DOSE SCREENING, 02/13/2023, 11:29. FINDINGS: Image quality: Diagnostic. Lower Neck: No enlarged lymph nodes. Thyroid: No thyroid nodules which require sonographic follow up, per consensus guidelines. Axillae: No enlarged lymph nodes. Chest Wall: Unremarkable. Bones: Unremarkable. Lungs and Pleura: No pneumothorax or pleural effusions. No consolidations. Previously identified scattered bilateral pulmonary nodules are similar versus minimally decreased in size. No new nodules are identified. Heart: Heart size is normal. No pericardial effusion. Thoracic Vessels: The aorta and pulmonary arteries demonstrate normal size. Mediastinum and Albertina: No enlarged lymph nodes. Esophagus: No wall thickening. Minimal hiatal hernia. Upper Abdomen: Unchanged 1 point cm left adrenal nodule. Hounsfield units measure -6 consistent with benign adenoma. Otherwise, visualized upper abdomen solid organs and bowel loops appear normal. IMPRESSION: Scattered subcentimeter bilateral pulmonary nodule similar versus slightly less prominent when compared to prior exam. The largest remains 6 mm in the right lower lobe. Recommend annual CT screening Dictated by: Amy Hawthorne M.D. on 08/31/2023 at 18:10 Approved by: Amy Hawthorne M.D. on 08/31/2023 at 18:22
== END ==
LOC: CT 13:49
PROVIDERS: PCP Family Medicine; Referring Provider Family Medicine; Visit Provider Family Medicine
DX: R91.8 Other nonspecific abnormal finding of lung field (principal)
CPT/HCPCS: 71250

== ENCOUNTER → 2024-02-11 13:13 | Outpatient (CLI) | payer OTHER, SELFPAY ==
[2024-02-11 15:46] LABS: Alanine Aminotransferase 26 IU/L (<35); Albumin 4.3 g/dL (3.5-5.0); Albumin Globulin Ratio 1.6 (1.0-2.8); Alkaline Phosphatase 62 U/L (38-126); Aspartate Aminotransferase 28 IU/L (14-36); BUN Creatinine Ratio 28.1 (6-22); Bilirubin Total 1.3 mg/dL (0.2-1.3); Blood Urea Nitrogen 18 mg/dL (7-17); Calcium 9.6 mg/dL (8.4-10.2); Carbon Dioxide 28 mmol/L (22-32); Chloride 104 mmol/L (98-107); Cholesterol 176 mg/dL (140-199); Estimated Glomerular Filt Rate > 60 mL/min (>60); Globulin 2.7 g/dL (1.7-4.1); Glucose 86 mg/dL (80-110); HDL Cholesterol 55 mg/dL (40-60); HEMOLYSIS < 15 (0-50); LDL Cholesterol Calculated 93 mg/dL (<100); Potassium 4.2 mmol/L (3.4-5.1); Sodium 139 mmol/L (137-145); Triglycerides 142 mg/dL (35-150)
[2024-02-11 19:59] LABS: Microalbumin Urine Random 18.3 mg/dL (0-1.6)
== END ==
PROVIDERS: PCP Family Medicine; Referring Provider Family Medicine; Visit Provider Family Medicine
DX: R73.03 Prediabetes (principal); I10 Essential (primary) hypertension
CPT/HCPCS: 36415; 80053; 80061; 82043; 82570; 83036

== ENCOUNTER → 2024-03-12 14:27 | Outpatient (CLI) | payer OTHER, SELFPAY | PROVIDERS: PCP Family Medicine; Referring Provider Physician Assistant Medical; Visit Provider Physician Assistant Medical | DX: R30.0 Dysuria (principal); N30.01 Acute cystitis with hematuria | CPT/HCPCS: 87086 ==

== ENCOUNTER → 2024-03-31 12:57 | Outpatient (CLI) | payer OTHER, SELFPAY ==
--- NOTE | 2024-03-31 12:58 | DI.CT.S_ITS ---
PROCEDURE: CT LUNG LOW DOSE SCREENING INDICATIONS: tobacco abuse TECHNIQUE: Noncontrast 2.0-2.5 mm thick sections acquired from the pulmonary apices to the posterior costophrenic angles. 7 mm thick axial MIP, and 5 mm coronal and sagittal reformats were then acquired. For radiation dose reduction, the following was used: automated exposure control, adjustment of mA and/or kV according to patient size. COMPARISON: [facility], CT, CT LUNG LOW DOSE SCREENING, 02/13/2023, 11:29. FINDINGS: Image quality: Diagnostic. Lower Neck: No enlarged lymph nodes. Thyroid: No thyroid nodules which require sonographic follow up, per consensus guidelines. Axillae: No enlarged lymph nodes. Chest Wall: Unremarkable. Bones: Unchanged T4. Lungs and Pleura: No pneumothorax or pleural effusions. Previously present nodules including punctate lateral right upper lobe series 3, image 96 and streaky opacities are unchanged. No new nodules. Heart: Heart size is normal. No pericardial effusion. Thoracic Vessels: The aorta and pulmonary arteries demonstrate normal size. Mediastinum and Albertina: No enlarged lymph nodes. Esophagus: No wall thickening. No hiatal hernia. Upper Abdomen: Visualized upper abdomen solid organs and bowel loops appear normal. IMPRESSION: Unchanged pulmonary nodules. LUNG-RADS 2; continued annual screening, if eligible. Clinically Significant Non-pulmonary Findings: None. Dictated by: Amy Hawthorne M.D. on 03/31/2024 at 17:27 Approved by: Amy Hawthorne M.D. on 03/31/2024 at 17:30
== END ==
PROVIDERS: PCP Family Medicine; Referring Provider Family Medicine; Visit Provider Family Medicine
DX: F17.219 Nicotine dependence, cigarettes, with unspecified nicotine-induced disorders (principal); R91.8 Other nonspecific abnormal finding of lung field
CPT/HCPCS: 71271

== ENCOUNTER → 2024-10-20 09:42 | Outpatient (CLI) | payer MEDICARE, SELFPAY ==
[2024-10-20 13:45] LABS: Add Manual Diff / Slide Review NO; Basophils Absolute Auto 0 /uL (0-100); Basophils Percent Auto 0.5 % (0-2); Eosinophils Absolute Auto 100 /uL (0-450); Eosinophils Percent Auto 2.2 % (2-4); Hematocrit 43.7 % (36-46); Hemoglobin 14.7 g/dL (12.0-16.0); Lymphocytes Absolute Auto 2700 /uL (1100-4500); Lymphocytes Percent Auto 41.6 % (25-40); Mean Corpuscular HGB Conc 33.6 % (30-36); Mean Corpuscular Volume 89.3 fL (80-100); Monocytes Absolute Auto 400 /uL (0-900); Monocytes Percent Auto 6.8 % (3-14); Neutrophils Absolute Auto 3100 /uL (1500-7000); Neutrophils Percent Auto 48.9 % (50-75); Platelet Count 263 X10^3/uL (150-400); Red Blood Cell Count 4.89 X10^6/uL (4.0-5.2); Red Cell Distribution Width 13.3 % (11.6-14.8); White Blood Cell Count 6.4 X10^3/uL (4.5-11.0)
[2024-10-20 14:03] LABS: Alanine Aminotransferase 30 IU/L (<35); Albumin 4.8 g/dL (3.5-5.0); Alkaline Phosphatase 62 U/L (38-126); Aspartate Aminotransferase 30 IU/L (14-36); BUN Creatinine Ratio 26.1 (6-22); Bilirubin Total 1.7 mg/dL (0.2-1.3); Blood Urea Nitrogen 18 mg/dL (7-17); Calcium 9.9 mg/dL (8.4-10.2); Carbon Dioxide 26 mmol/L (22-32); Chloride 106 mmol/L (98-107); Estimated Glomerular Filt Rate > 60 mL/min (>60); Globulin 2.4 g/dL (1.7-4.1); Glucose 105 mg/dL (70-99); HEMOLYSIS < 15 (0-50); Potassium 4.2 mmol/L (3.4-5.1); Sodium 142 mmol/L (137-145); Total Protein 7.2 g/dL (6.3-8.2)
[2024-10-20 16:37] LABS: Microalbumin Urine Random 9.8 mg/dL (0-1.6)
== END ==
PROVIDERS: PCP Family Medicine; Referring Provider Family Medicine; Visit Provider Family Medicine
DX: I10 Essential (primary) hypertension (principal); R73.03 Prediabetes; E78.5 Hyperlipidemia, unspecified; K92.1 Melena
CPT/HCPCS: 36415; 80053; 82043; 82570; 83036; 85025

== ENCOUNTER → 2024-12-18 12:23 | Outpatient (CLI) | payer MEDICARE, SELFPAY | PROVIDERS: PCP Family Medicine; Visit Provider Chiropractor | DX: R30.0 Dysuria (principal) | CPT/HCPCS: 87086 ==